=== PATIENT | female | born 1995 | race Caucasian/White ===

== ENCOUNTER 2018-07-24 13:36 | Inpatient (IN) ==
[2018-07-24] MEDS ORDERED: ONDANSETRON HCL/PF 2 MG/ML VIAL IV PRN ×2 (13:45→14:49)
[2018-07-24] MEDS ORDERED: PENICILLIN G POTASSIUM 5 MILLIONUNT in DEXTROSE 5 % IN WATER 100 ML IV ONE ×2 (13:45)
[2018-07-24] MEDS ORDERED: RINGER'S SOLUTION,LACTATED 1,000 ML IV ONE (13:45)
[2018-07-24] MEDS ORDERED: RINGER'S SOLUTION,LACTATED 1,000 ML IV PRN (13:45)
[2018-07-24] MEDS ORDERED: LIDOCAINE HCL 50 ML VIAL PERI PRN (13:45)
[2018-07-24] MEDS ORDERED: NALBUPHINE HCL 10 MG/ML AMPUL IV PRN ×2 (13:45)
--- NOTE | 2018-07-24 14:23 | HP ---
Chief Complaint - Chief Complaint Date of Service: 07/24/18 Time of Service: 14:17 Chief Complaint: Labor History of Present Illness: The patient presented to the office complaining of regular contractions. She denies vb or lof. Fetus is active. Medical History (Last Reviewed 04/06/18 @ 14:47 by Cuca Crowley) Currently Onset Date: 12/08/17 Genital herpes Onset Date: ~2012 HSV (herpes simplex virus) infection Onset Date: 10/09/13 Tobacco abuse Onset Date: 12/08/17 [place] teeth extracted Onset Date: Unknown Surgical History: Surgical History (Last Reviewed 04/06/18 @ 14:47 by Cuca Crowley) History of tonsillectomy Onset Date: Unknown Family History: Family History (Last Reviewed 04/06/18 @ 14:47 by Cuca Crowley) Grandfather Multiple sclerosis maternal Social History: Preferred Language Slovak Smoking Status Current every day smoker Psych History No pertinent hx (Last Updated 07/24/18 @ 10:36 by Ninfa Gutierrez MD) No Social History Section defined Review Of Systems (GEN) - Review of Systems Misc: All systems neg except as marked Immunizations: IMMUNIZATION HX Immunizations Up to Date No History of Influenza Vaccine No Hx Pneumococcal Vaccination No Allergies/Adverse Reactions: Allergies Allergy/AdvReac Type Severity Reaction Status Date / Time No Known Allergies Allergy Verified 07/24/18 10:16 Home Medications: HOME MEDICATIONS Vits96/Iron Fum/Folic [ S] 1 tab PO DAILY 04/04/14 [Last Taken 1 Day Ago ~06/22/18] acetaminophen 325 mg tablet See Rx Instructions PO Q6H PRN 04/03/18 [Last Taken Unknown] ascorbic acid (vitamin C) 500 mg tablet 500 mg PO DAILY 06/08/18 [Last Taken 1 Day Ago ~06/22/18] ferrous sulfate 325 mg (65 mg iron) tablet 325 mg PO DAILY tab 06/08/18 [Last Taken 1 Day Ago ~06/22/18] valacyclovir 1 gram tablet 1,000 mg PO DAILY #30 tab 07/06/18 [Last Taken 07/24/18 09:00] Exam - Exam Constitutional: Present: Alert, Oriented x3, Cooperative, No distress Respiratory: Present: lungs clear, normal breath sounds, no respiratory distress Cardiovascular/Chest: Present: regular rate, rhythm, no murmur Abdomen: Present: soft, nontender, nondistended Extremity: Present: normal inspection, no calf tenderness Skin Exam: Present: normal color, warm/dry, no cyanosis Appearance: Present: appropriate appearance Eye contact: Present: cooperative Thoughts: Present: normal thought pattern Assessment/Plan - Narrative Narrative: 22 yo @ 39w 0d Admit for Labor GBS positive: GBS prophylaxis with PCN HSV prophylaxis: valtrex prophylaxis
[2018-07-24] MEDS ORDERED: NALOXONE HCL 1 MG/1 ML SYRG IV PRN (14:49)
[2018-07-24] MEDS ORDERED: BUPIVACAINE HCL/0.9 % NACL/PF 250 ML EP PRN (14:49)
--- NOTE | 2018-07-24 14:59 | ANES ---
Anesthesia Pre Procedure Eval Vitals/Labs: Last Vital Signs Temp 35.5 C L 07/24/18 14:21 Pulse 74 07/24/18 14:21 Resp 20 07/24/18 14:21 BP 132/76 07/24/18 14:21 Pulse Ox 97 07/24/18 14:21 HOME MEDICATIONS RX: Vits96/Iron Fum/Folic [ S] 1 tab PO DAILY 04/04/14 [Last Taken 1 Day Ago ~06/22/18] acetaminophen 325 mg tablet See Rx Instructions PO Q6H PRN 04/03/18 [Last Taken Unknown] ascorbic acid (vitamin C) 500 mg tablet 500 mg PO DAILY 06/08/18 [Last Taken 1 Day Ago ~06/22/18] ferrous sulfate 325 mg (65 mg iron) tablet 325 mg PO DAILY tab 06/08/18 [Last Taken 1 Day Ago ~06/22/18] valacyclovir 1 gram tablet 1,000 mg PO DAILY #30 tab 07/06/18 [Last Taken 07/24/18 09:00] Allergies/Adverse Reactions: Allergies Allergy/AdvReac Type Severity Reaction Status Date / Time No Known Allergies Allergy Verified 07/24/18 10:16 - Planned Procedure Planned Procedure: Labor epidural Medication List Reviewed:: Yes Allergies Verified: Yes Medical History (Last Reviewed 07/24/18 @ 14:57 by Narciso Ellis CRNA) Currently Onset Date: 12/08/17 Genital herpes Onset Date: ~2012 HSV (herpes simplex virus) infection Onset Date: 10/09/13 Tobacco abuse Onset Date: 12/08/17 [place] teeth extracted Onset Date: Unknown Surgical History (Last Reviewed 07/24/18 @ 14:57 by Narciso Ellis CRNA) History of tonsillectomy Onset Date: Unknown Family History (Last Reviewed 07/24/18 @ 14:57 by Narciso Ellis CRNA) Grandfather Multiple sclerosis maternal - Family Anesthesia History Family History:: no untoward family reactions to anesthesia, no familial bleeding tendencies, no family history of clotting disorders, no family history of premature - Respiratory Smoking Status: Current every day smoker - Anesthesia Assessment and Plan ASA Class: PS, II Anesthesia Type Plan: Epidural
[2018-07-24] MEDS ORDERED: BUPIVACAINE HCL/PF 30 ML VIAL EP SCH (15:00)
--- NOTE | 2018-07-24 15:16 | ANES ---
Anesthesia Procedure Note Procedure Note: ANESTHESIA PROCEDURE NOTE Date of Procedure: 07/24/2018. Time of procedure: 1500. Performed by: Narciso Ellis CRNA Car Driver: None. Preprocedure diagnosis: Active labor. Post procedure diagnosis: Same. Procedure: Insertion of labor epidural. Indications: The patient is a 22 -year-old female in active labor requesting labor epidural for pain management. Findings: See below. Details of the procedure: The patient was placed in a sitting position. DuraPrep as well as Betadine swabs X3 was applied to the patient's back. Patient was then draped in a sterile fashion. Lidocaine 1% was infiltrated to the skin and subcutaneous tissues at the level of the L3-4 interspace. The epidural space was identified using a 18-gauge Tuohy needle with [id number] technique. Epidural catheter was inserted to a depth of 11 centimeters at skin. Negative test dose was elicited using 3 mL of 1.5% preservative-free lidocaine plus epinephrine 1 200,000. The epidural catheter was then taped and secured in place. A loading dose of 8 mL of 0.25% preservative-free bupivacaine was administered to the epidural catheter after negative aspiration for blood and CSF. EBL: Minimal. Fluids: N/A. Specimen: N/A. Post procedure condition: The patient tolerated the procedure well. No complications were noted. Thank you for this consultation. Narciso Ellis CRNA
--- NOTE | 2018-07-24 15:22 | ANES ---
Post Anesthesia Assessment - Vital Signs Vitals: Last Vital Signs Temp 36.4 C 07/24/18 15:21 Pulse 71 07/24/18 15:21 Resp 16 07/24/18 15:21 BP 123/75 07/24/18 15:21 Pulse Ox 100 07/24/18 15:21 Airway Patency: Normal - Mental Status Level Of Consciousness: Awake - N/V Assessment Nausea/Vomiting Presence: None Dehydration:: No
[2018-07-24] MEDS ORDERED: OXYTOCIN/DEXTROSE 5%-WATER 30 UNITS/500 ML BAG IV ONE ×2 (15:47→16:26)
[2018-07-24] MEDS ORDERED: HYDROcodone/ACETAMINOPHEN 1 EACH TABLET PO PRN (16:26)
[2018-07-24] MEDS ORDERED: BENZOCAINE/MENTHOL 81 SPRAY CAN TP PRN (16:26)
[2018-07-24] MEDS ORDERED: HYDROCORTISONE 30 APPL TUBE TP PRN (16:26)
[2018-07-24] MEDS ORDERED: SENNOSIDES 8.6 MG TABLET PO PRN (16:26)
[2018-07-24] MEDS ORDERED: ACETAMINOPHEN 325 MG TABLET PO PRN (16:26)
[2018-07-24] MEDS ORDERED: BISACODYL 10 MG SUPP.RECT RC PRN (16:26)
[2018-07-24] MEDS ORDERED: GLYCERIN/WITCH HAZEL LEAF 40 APPL BOX TP PRN (16:26)
[2018-07-24] MEDS ORDERED: diphenhydrAMINE HCL 25 MG CAPSULE PO PRN (16:26)
--- NOTE | 2018-07-24 17:31 | OR ---
Operative Report - Dictated Report Narrative: Date of delivery: 07/24/2018 Time of delivery: 16:17 Gender: male weight: 3106 grams APGARS: 8/9 The patient presented to labor and delivery in active labor. She progressed to complete dilation. She had spontaneous rupture of membranes and then a forebag present which I ruptured at the time of delivery. She delivered a viable male infant in the GILLES position over an intact perineum. The baby had a loose nuchal cord that was reduced. There was also a body cord present. Cord clamping was delayed for 60 seconds. The placenta delivered by expression and appeared intact. Lacerations: none EBL: 50 mL Complications: none Definition: * The number of deliveries resulting in a live the patient experienced prior to current hospitalization * The previous delivery of live twins or any live multiple gestation is considered one live event. *If primagravida or nulliparous is documented select zero for the number of previous live births. Live births: 1
[2018-07-24] MEDS ORDERED: PENICILLIN G POTASSIUM 2.5 MILLIONUNT in DEXTROSE 5 % IN WATER 100 ML IV SCH ×2 (17:45)
[2018-07-24] MEDS: IBUPROFEN 800 MG TABLET PO PRN (17:59)
[2018-07-24 19:12] LABS: Cocaine Ur Negative (NEGATIVE); Urine Barbiturate Negative (NEGATIVE); Urine Benzodiazepines Negative (NEGATIVE); Urine Opiates Negative (NEGATIVE); Urine PCP Negative (NEGATIVE); Urine THC Negative (NEGATIVE)
[2018-07-24] MEDS: HYDROcodone/ACETAMINOPHEN 1 EACH TABLET PO PRN (22:48)
[2018-07-24] MEDS: DOCUSATE SODIUM 100 MG CAPSULE PO SCH (22:48)
[2018-07-25] MEDS: IBUPROFEN 800 MG TABLET PO PRN ×2 (02:14→14:54)
[2018-07-25] MEDS: HYDROcodone/ACETAMINOPHEN 1 EACH TABLET PO PRN ×2 (02:14→06:21)
[2018-07-25] MEDS ORDERED: RHO(D) IMMUNE GLOBULIN 1,500 UNIT SYRINGE IM ONE (09:00)
[2018-07-25] MEDS: DOCUSATE SODIUM 100 MG CAPSULE PO SCH ×2 (10:38→20:15)
--- NOTE | 2018-07-26 08:31 | PN ---
Subjective - Date and Time Seen Date: 07/25/18 Time: 08:00 Subjective Narrative: Pt without complaints. VB is normal Objective Objective Narrative: see vitals - Review of Systems Generalized/Overall Review: Reports: No Symptoms Reported Misc: All systems neg except as marked - Vitals Vitals: Last Vital Signs Temp 36.9 C 07/26/18 07:30 Pulse 58 L 07/26/18 07:30 Resp 18 07/26/18 07:30 BP 109/62 07/26/18 07:30 Pulse Ox 96 07/26/18 07:30 - Exam Constitutional: Present: Alert, Oriented x3, Cooperative, No distress Abdomen: Present: soft, nontender, nondistended Extremity: Present: non-tender, no calf tenderness, pedal edema Skin Exam: Present: normal color, warm/dry, no cyanosis Appearance: Present: appropriate appearance Eye contact: Present: cooperative Thoughts: Present: normal thought pattern Assessment/Plan Plan Narrative: PPD 2 s/p Doing well Discharge today
--- NOTE | 2018-07-26 08:33 | PN ---
Subjective - Date and Time Seen Date: 07/26/18 Time: 08:32 Subjective Narrative: Pt without complaints. VB is normal Objective Objective Narrative: see vitals - Review of Systems Generalized/Overall Review: Reports: No Symptoms Reported Misc: All systems neg except as marked - Vitals Vitals: Last Vital Signs Temp 36.9 C 07/26/18 07:30 Pulse 58 L 07/26/18 07:30 Resp 18 07/26/18 07:30 BP 109/62 07/26/18 07:30 Pulse Ox 96 07/26/18 07:30 - Exam Constitutional: Present: Alert, Oriented x3, Cooperative, No distress Abdomen: Present: soft, nontender, nondistended Extremity: Present: non-tender, no calf tenderness, pedal edema Skin Exam: Present: normal color, warm/dry, no cyanosis Appearance: Present: appropriate appearance Eye contact: Present: cooperative Thoughts: Present: normal thought pattern Assessment/Plan Plan Narrative: PPD 1 s/p Discharge tomorrow
[2018-07-26] MEDS: DOCUSATE SODIUM 100 MG CAPSULE PO SCH (08:56)
[2018-07-26] MEDS: IBUPROFEN 800 MG TABLET PO PRN (11:19)
[2018-07-26 14:21] VITALS: BP 131/78
== END 2018-07-26 15:15 | disposition home or self-care (01) | DRG 806 ==
LOC: OB 13:36 → MS 07-25 17:02
PROVIDERS: ADMIT Obstetrics & Gynecology; ATTEND Obstetrics & Gynecology
CPT/HCPCS: 59025; 80307; 85460; 86850; 86870; 86900; G0479; J2790